=== PATIENT | male | born 1940 | race Caucasian/White ===

== ENCOUNTER 2021-03-04 14:32 | Emergency (ER) | payer MEDICARE ==
[~2021-03-04] VITALS: Ht 177 cm; Wt 95.5 kg
[2021-03-04] MEDS: PROPOFOL DRIP (ICU) 100 ML IV SCH ×4 (14:32→21:59)
[2021-03-04] MEDS ORDERED: ROCURONIUM 10 MG/ML 5 ML SYRINGE IV ONE (14:36)
[2021-03-04] MEDS ORDERED: EPINEPHrine 0.1 MG/ML 10 ML (HOSPIRA) SYR INJ ONE (14:36)
[2021-03-04 15:02] VITALS: BP 164/52
[2021-03-04 15:03] LABS: BASOPHILS % (AUTO) 0 % (0-10); EOSINOPHILS # (AUTO) 0.2 10^3/uL (0.0-0.3); EOSINOPHILS % (AUTO) 1 % (0-10); HEMATOCRIT 29 % (40-54); HEMOGLOBIN 9.8 g/dL (13.3-17.7); LYMPHOCYTES % (AUTO) 38 % (12-44); MEAN CORPUSCULAR HEMOGLOBIN 33 pg (25-34); MEAN CORPUSCULAR HGB CONC 33 g/dL (32-36); MEAN CORPUSCULAR VOLUME 98 fL (80-99); MEAN PLATELET VOLUME 10.8 fL (9.0-12.2); MONOCYTES # (AUTO) 0.6 X 10^3 (0.0-1.0); MONOCYTES % (AUTO) 4 % (0-12); NEUTROPHILS # (AUTO) 8.2 X 10^3 (1.8-7.8); NEUTROPHILS % (AUTO) 52 % (42-75); PLATELET COUNT 295 10^3/uL (130-400); WHITE BLOOD COUNT 15.8 10^3/uL (4.3-11.0)
[2021-03-04 15:04] LABS: POTASSIUM 3.4 MMOL/L (3.6-5.0)
[2021-03-04 15:06] LABS: CALCIUM 7.6 MG/DL (8.5-10.1); INR 1.1 (0.8-1.4); PROTHROMBIN TIME PATIENT 14.7 SEC (12.2-14.7)
[2021-03-04 15:07] LABS: TOTAL PROTEIN 5.3 GM/DL (6.4-8.2)
[2021-03-04] MEDS ORDERED: NOREPINEPHRINE 8 MG/250 ML 250 ML IV ONE (15:08)
[2021-03-04 15:09] LABS: BILIRUBIN,TOTAL 0.4 MG/DL (0.1-1.0)
[2021-03-04] MEDS ORDERED: NS IV 500 ML 500 ML ONE (15:09)
[2021-03-04 15:10] LABS: CREATININE SERUM 2.55 MG/DL (0.60-1.30)
[2021-03-04 15:13] LABS: MAGNESIUM 2.1 MG/DL (1.6-2.4)
[2021-03-04] MEDS: NOREPINEPHRINE 8 MG/250 ML 250 ML IV SCH ×2 (15:15→22:00)
[2021-03-04 15:22] LABS: ATYPICAL LYMPHOCYTES 1 %; BAND NEUTROPHILS 4 %; BASOPHILS % (MANUAL) 0 %; EOSINOPHILS % (MANUAL) 0 %; LYMPHOCYTES % (MANUAL) 31 %; METAMYELOCYTES % 4 %; MONOCYTES % (MANUAL) 5 %; MYELOCYTES % 1 %; NEUTROPHILS % (MANUAL) 54 %
[2021-03-04 15:23] LABS: ROULEAUX SLIGHT
--- NOTE | 2021-03-04 15:38 | ED General ---
General Stated Complaint: CODE BLUE Source of Information: EMS (LUL NAVA APRN) History of Present Illness Date Seen by Provider: Mar 04, 2021 (LUL NAVA APRN) Time Seen by Provider: 14:35 Initial Comments This 81-year-old gentleman presents to the emergency room status post cardiac arrest and ROSC at dialysis just prior to arrival. The arrest occurred suddenly without prodrome according to report. CPR was started at 1413. EMS arrived shortly after and ROSC was achieved at 1424. Initial rhythm was asystole and patient was unresponsive. He had just finished dialysis. Family reports that he had been admitted to [facility] for heart failure and renal failure. He underwent dialysis x3 while at [facility]. He was released late last night and had his first outpatient dialysis today in [place]. He has history of diabetes, heart failure, and renal failure. Blood sugar was in the 300s for EMS. (PAYTON BECKMAN MD) Allergies and Home Medications Allergies Coded Allergies: No Known Drug Allergies (Unverified , 03/04/21) Patient Home Medication List Home Medication List Reviewed: Yes (PAYTON BECKMAN MD) Review of Systems Review of Systems Constitutional: see HPI EENTM: no symptoms reported Respiratory: see HPI Cardiovascular: see HPI Gastrointestinal: no symptoms reported Genitourinary: no symptoms reported Musculoskeletal: no symptoms reported Skin: no symptoms reported Psychiatric/Neurological: See HPI Hematologic/Lymphatic: No Symptoms Reported Immunological/Allergic: no symptoms reported (PAYTON BECKMAN MD) Past [place]-Bisyws-Rqphmc Hx Past Medical History Surgeries: Yes (Dialysis port and dialysis fistula) Coronary Stent Respiratory: Yes Sleep Apnea Cardiac: Yes (CHF) Coronary Artery Disease, Hypertension Neurological: No Genitourinary: Yes Renal Failure, Dialysis Gastrointestinal: No Musculoskeletal: No Endocrine: Yes Diabetes, Insulin dep, Hypothyroidsim Psychosocial: No Integumentary: No (PAYTON BECKMAN MD) Physical Exam Vital Signs Vital Signs - First Documented 03/04/21 03/04/21 14:32 14:49 Temp 35.2 Pulse 69 Resp 17 B/P (MAP) 145/57 Pulse Ox 100 O2 Delivery Ambu Bag O2 Flow Rate 15.00 FiO2 100 (PAYTON BECKMAN MD) Vital Signs Capillary Refill : (LUL NAVA APRN) Height, Weight, BMI Height: '" Weight: lbs. oz. kg; BMI Method: (LUL NAVA APRN) General Appearance: No Apparent Distress, Other (Unresponsive with very little) HEENT: Normal ENT Inspection Neck: Normal Inspection Respiratory: Lungs Clear, Normal Breath Sounds, Other (Intubated) Cardiovascular: Regular Rate, Rhythm, No Edema, No Murmur Gastrointestinal: Soft; No Distended Extremity: Normal Inspection, No Pedal Edema Neurologic/Psychiatric: Other (Some spontaneous muscle movements. Purposeful movement reaching for ET tube after inbutation) Skin: Normal Color, Warm/Dry (PAYOTN BECKMAN MD) Focused Exam Lactate Level 03/04/21 15:20: Lactic Acid Level 2.82*H (PAYTON BECKMAN MD) Lactic Acid Level Laboratory Tests Test 03/04/21 15:20 Lactic Acid Level 2.82 MMOL/L (0.50-2.00) *H (PAYTON BECKMAN MD) Procedures/Interventions Lumen: triple Central Line Procedure: betadine prep Position: internal jugular (L) Volume Anesthetic (ccs): 5 Post Position: sutured, good blood return, position confirmed w/ CXR (LUL NAVA APRN) Date of ETT Placement: Mar 04, 2021 Time of ETT Placement: 1445 Intubation Method: orotracheal Tube Size: 7.50 Medications: Propofol, Rocuronium Positive End Tide CO2: Yes Breath Sounds after Intubation: bilateral-equal Intubation Complications: no complications Post Intubation Xray: Yes (LUL NAVA APRN) Progress/Results/Core Measures Suspected Sepsis SIRS Temperature: Pulse: 50 Respiratory Rate: 18 Laboratory Tests 03/04/21 14:35: White Blood Count 15.8H Blood Pressure 164 /52 Mean: 03/04/21 15:20: Laboratory Tests 03/04/21 14:35: Creatinine 2.55H, INR Comment 1.1, Platelet Count 295, Total Bilirubin 0.4 (LUL NAVA APRN) Results/Orders Lab Results Laboratory Tests Test 03/04/21 14:35 03/04/21 14:50 03/04/21 15:00 03/04/21 15:20 Range/Units White Blood Count 15.8 H 4.3-11.0 10^3/uL Red Blood Count 3.00 L 4.30-5.52 10^6/uL Hemoglobin 9.8 L 13.3-17.7 g/dL Hematocrit 29 L 40-54 % Mean Corpuscular Volume 98 80-99 fL Mean Corpuscular Hemoglobin 33 25-34 pg Mean Corpuscular Hemoglobin Concent 33 32-36 g/dL Red Cell Distribution Width 13.3 10.0-14.5 % Platelet Count 295 130-400 10^3/uL Mean Platelet Volume 10.8 9.0-12.2 fL Immature Granulocyte % (Auto) 6 % Neutrophils (%) (Auto) 52 42-75 % Lymphocytes (%) (Auto) 38 12-44 % Monocytes (%) (Auto) 4 0-12 % Eosinophils (%) (Auto) 1 0-10 % Basophils (%) (Auto) 0 0-10 % Neutrophils # (Auto) 8.2 H 1.8-7.8 X 10^3 Lymphocytes # (Auto) 6.0 H 1.0-4.0 X 10^3 Monocytes # (Auto) 0.6 0.0-1.0 X 10^3 Eosinophils # (Auto) 0.2 0.0-0.3 10^3/uL Basophils # (Auto) 0.0 0.0-0.1 10^3/uL Immature Granulocyte # (Auto) 0.9 H 0.0-0.1 10^3/uL Neutrophils % (Manual) 54 % Lymphocytes % (Manual) 31 % Monocytes % (Manual) 5 % Eosinophils % (Manual) 0 % Basophils % (Manual) 0 % Metamyelocytes % 4 % Myelocytes % 1 % Band Neutrophils 4 % Atypical Lymphocytes 1 % Rouleau SLIGHT Prothrombin Time 14.7 12.2-14.7 SEC INR Comment 1.1 0.8-1.4 Activated Partial Thromboplast Time 51 H 24-35 SEC Sodium Level 134 L 135-145 MMOL/L Potassium Level 3.4 L 3.6-5.0 MMOL/L Chloride Level 103 98-107 MMOL/L Carbon Dioxide Level 17 L 21-32 MMOL/L Anion Gap 14 5-14 MMOL/L Blood Urea Nitrogen 24 H 7-18 MG/DL Creatinine 2.55 H 0.60-1.30 MG/DL Estimat Glomerular Filtration Rate 24 BUN/Creatinine Ratio 9 Glucose Level 351 H 70-105 MG/DL Calcium Level 7.6 L 8.5-10.1 MG/DL Corrected Calcium 8.4 L 8.5-10.1 MG/DL Magnesium Level 2.1 1.6-2.4 MG/DL Total Bilirubin 0.4 0.1-1.0 MG/DL Aspartate Amino Transf (AST/SGOT) 102 H 5-34 U/L Alanine Aminotransferase (ALT/SGPT) 73 H 0-55 U/L Alkaline Phosphatase 52 40-136 U/L Myoglobin 362.7 H 10.0-92.0 NG/ML Troponin I 0.041 H <0.028 NG/ML C-Reactive Protein High Sensitivity 1.07 H 0.00-0.50 MG/DL B-Type Natriuretic Peptide 314.6 H <100.0 PG/ML Total Protein 5.3 L 6.4-8.2 GM/DL Albumin 3.0 L 3.2-4.5 GM/DL Procalcitonin 0.07 <0.10 NG/ML Urine Color YELLOW Urine Clarity CLOUDY Urine pH 6.0 5-9 Urine Specific Scre[place] >=1.030 1.016-1.022 Urine Protein 2+ H NEGATIVE Urine Glucose (UA) 2+ H NEGATIVE Urine Ketones NEGATIVE NEGATIVE Urine Nitrite NEGATIVE NEGATIVE Urine Bilirubin NEGATIVE NEGATIVE Urine Urobilinogen 0.2 < = 1.0 MG/DL Urine Leukocyte Esterase NEGATIVE NEGATIVE Urine RBC (Auto) NEGATIVE NEGATIVE Urine RBC NONE /HPF Urine WBC 0-2 /HPF Urine Squamous Epithelial Cells RARE /HPF Urine Crystals NONE /LPF Urine Bacteria LARGE H /HPF Urine Casts PRESENT /LPF Urine Hyaline Casts 0-2 H /LPF Urine Mucus NEGATIVE /LPF Urine Culture Indicated YES Influenza Type A (RT-PCR) Not Detected Not Detecte Influenza Type B (RT-PCR) Not Detected Not Detecte SARS-CoV-2 RNA (RT-PCR) Not Detected Not Detecte Lactic Acid Level 2.82 *H 0.50-2.00 MMOL/L Test 03/04/21 16:16 03/04/21 18:20 Range/Units Blood Gas Puncture Site R BRACHIAL Blood Gas Patient Temperature 36 Arterial Blood pH 7.36 L 7.37-7.43 Arterial Blood Partial Pressure CO2 39 35-45 MMHG Arterial Blood Partial Pressure O2 61 L 79-93 MMHG Arterial Blood HCO3 22 L 23-27 MMOL/L Arterial Blood Total CO2 23.0 21.0-31.0 MMOL/L Arterial Blood Oxygen Saturation 92 L 94-100 % Arterial Blood Base Excess -3.0 L -2.5-2.5 MMOL/L Calin Test NA Blood Gas Ventilator Setting YES Blood Gas Inspired Oxygen 35% Glucometer 361 H 70-110 MG/DL (PAYTON BECKMAN MD) My Orders Orders - PAYTON BECKMAN MD Cbc With Automated Diff (03/04/21 14:51) Magnesium (03/04/21 14:51) Chest 1 View, Ap/Pa Only (03/04/21 14:51) Ekg Tracing (03/04/21 14:51) Comprehensive Metabolic Panel (03/04/21 14:51) Myoglobin Serum (03/04/21 14:51) Protime With Inr (03/04/21 14:51) Partial Thromboplastin Time (03/04/21 14:51) O2 (03/04/21 14:51) Monitor-Rhythm Ecg Trace Only (03/04/21 14:51) Lipid Panel (03/05/21 06:00) Ed Iv/Invasive Line Start (03/04/21 14:51) Troponin I (03/04/21 14:51) Lactic Acid Analyzer (03/04/21 15:03) Manual Differential (03/04/21 14:35) Norepinephrine 8 Mg/250 Ml (Norepinephri (03/04/21 15:08) Ns Iv 500 Ml (Sodium Chloride 0.9%) (03/04/21 15:09) Norepinephrine 8 Mg/250 Ml (Norepinephri (03/04/21 15:30) Covid 19 Inhouse Test (03/04/21 15:25) Influenza A And B By Pcr (03/04/21 15:25) Ekg Tracing (03/04/21 15:38) Hs C Reactive Protein (03/04/21 16:15) Procalcitonin (Pct) (03/04/21 16:15) Urine Culture (03/04/21 14:50) Sputum Culture (03/04/21 14:48) Blood Culture (03/04/21 16:34) Urinalysis (03/04/21 16:34) Vital Signs Adult Sepsis Patie Q15M (03/04/21 16:34) Remove Rings In Anticipation O (03/04/21 16:34) Urine Culture (03/04/21 14:50) BNP (03/04/21 17:09) Propofol Drip (Icu) (Diprivan Drip (Icu) (03/04/21 18:05) (PAYTON BECKMAN MD) Medications Given in ED Current Medications Medications Dose Ordered Sig/Geoffrey Route Start Time Stop Time Status Last Admin Dose Admin Propofol 100 ml @ ud STK-MED ONCE IV 03/04/21 18:05 03/04/21 18:08 DC 03/04/21 18:20 23 MLS/HR Sodium Chloride 500 ml @ ud STK-MED ONCE .ROUTE 03/04/21 15:09 03/04/21 15:11 DC 03/04/21 15:15 500 MLS/HR (PAYTON BECKMAN MD) Vital Signs/I&O 03/04/21 03/04/21 03/04/21 03/04/21 14:32 14:32 14:49 15:02 Temp 35.2 Pulse 69 70 50 Resp 17 18 B/P (MAP) 145/57 145/57 (86) Pulse Ox 100 96 O2 Delivery Ambu Bag Ambu Bag O2 Flow Rate 15.00 FiO2 100 35 03/04/21 03/04/21 03/04/21 15:15 18:20 19:28 Pulse 45 55 54 Resp 18 B/P (MAP) 52/32 134/61 Pulse Ox 96 FiO2 50 (PAYTON BECKMAN MD) Vital Signs/I&O Capillary Refill : (LUL NAVA APRN) Progress Note : Time: 20:50 Progress Note I have assumed care of the patient from Dr. Cullen pending transfer if we can find a bed. We have called multiple local hospitals and have added mission control to assist in finding a bed. Thus far we have not had any luck. Patient does need facility capable of doing dialysis as he is end-stage renal disease. I have consulted [facility] ICU for assistance in managing the patient. I did discuss the case with them and they have added orders and are assisting with the overall management. Monitor patient. 2350: CT scan complete. Patient has had orders for insulin drip and antibiotics. Repeat labs ordered and done by ICU team. Remains on Levophed drip at 0.1 mcg/kg/min and propofol drip for sedation. Patient control called and [facility] in [place] is requesting information for evaluation. We will send them information as requested. Monitor patient. 0107: [facility] was called and they believe there may be an ICU bed at the [facility] in [place]. They asked that I call which I did. The entire [place] system is on transfer diversion and is not excepting any transfers and currently. We are still pending information from [place]. Family informed. Monitor patient. 0600: Still pending transfer. Unable to find facility overnight and mission control will restart attempts for finding bed this morning. The telehealth ICU team has continued coverage overnight with this patient including initiating insulin drip and antibiotics. They are monitoring closely. Care transferred to Dr. Allen pending transfer. I did have a long conversation with the family regarding patient's current situation including concerns for possibility of worsening. We will continue appropriate care here but still are unable to provide dialysis. Patient and family are understanding and appreciative of all of the efforts that we are providing. Checkout to Dr. Allen at bedside. (MOODY TATUM MD) Progress Note : Time: 11:36 Progress Note Assumed care of the patient at shift change. Review protocols. We did reduce his propofol as his pressure was soft and had to increase his pressures. eICU has been very helpful in the care of this case and we are grateful. His blood sugar was 120s and his insulin drip continues. (KAMINI ALLEN) ECG EKG #1: EKG Time: 14:53 Rate: 54 Rhythm: Normal Sinus Comment Sinus rhythm with no ST elevation. Borderline ST depression but not diagnostic for ischemia. prolonged QTC of 506. No axis deviation. EKG #2: EKG Time: 15:00 Rate: 54 Comment Sinus rhythm with no ST elevation. Borderline ST depression. QTc improved. No axis deviation. (PAYTON BECKMAN MD) Diagnostic Imaging Diagonstic Imaging: Xray Plain Films/CT/US/NM/MRI: chest Comments NAME: ANTHONY HILL [facility] REC#: [id number] PT STATUS: REG ER : 1940 PHYSICIAN: PAYTON BECKMAN MD ADMIT DATE: 03/04/21/ER Draft Date of Exam:03/04/21 CHEST 1 VIEW, AP/PA ONLY INDICATION: Chest pain. TECHNIQUE: Single view chest 3:51 PM. CORRELATION STUDY: None FINDINGS: Endotracheal tube projects over the trachea tip below the clavicles. Left IJ central line is present, tip likely at the level of the innominate vein, approaching the SVC. Right IJ dialysis catheter tip at the high right atrium. Gastric tube tip likely just distal to the GE junction side-port proximal to the junction. Heart size is enlarged, mediastinum prominent. Vascular congestion present. Bilateral pulmonary opacities may be reflective of underlying edema. Developing multilobe infiltrate not excluded. IMPRESSION: 1. Multiple support lines and tubes, as above. 2. Cardiac enlargement and vascular congestion suggestive of edema. Bilateral pulmonary opacities. Additional pulmonary edema versus multilobe infiltrate. Follow-up imaging recommended. Dictated on workstation # [id number] Dict: 03/04/21 1600 Trans: 03/04/21 1603 [facility] [id number] Interpreted by: ROSHNI CHASE DO (PAYTON BECKMAN MD) Diagonstic Imaging: CT Plain Films/CT/US/NM/MRI: head Comments [facility] [place] NAME: ANTHONY HILL [facility] REC#: [id number] PT STATUS: REG ER : 1940 PHYSICIAN: NOAH YU MD ADMIT DATE: 03/04/21/ER Signed Date of Exam:03/04/21 CT HEAD WO PROCEDURE: CT head without contrast. TECHNIQUE: Multiple contiguous axial images were obtained through the brain without the use of intravenous contrast. Auto Exposure Controls were utilized during the CT exam to meet ALARA standards for radiation dose reduction. INDICATION: Cardiopulmonary arrest Patient has a left ocular prosthesis. The ventricles are normal in size, shape, and position. There are no masses or hemorrhages. There are no extra-axial fluid collections. IMPRESSION: No acute abnormality seen in the head Dictated by: Dictated on workstation # [id number] Dict: 03/04/212313 Trans: 03/04/212316 [facility] [id number] Interpreted by: MOODY MCCLOUD MD Electronically signed by: MOODY MCCLOUD MD 03/04/212316 (MOODY TATUM MD) Critical Care Note Critical Care Progress 1600 - Patient had pulse and measurable blood pressure on arrival. He had received epinephrine 1 mg, atropine milligram, and normal saline 400 mL at the time of arrival. CPR was performed on scene until ROSC was achieved after the administration of epinephrine. He was bradycardic after ROSC and atropine was administered. Vital signs are stable on arrival. He is nearly unresponsive but has some purposeful movement reaching toward the ET tube after intubation. Induction was achieved with a propofol 80 mg bolus and rocuronium 50 mg. Sedation is being maintained with a propofol drip. Blood pressure has dropped and was hypotensive after intubation. Levophed drip was initiated and has been titrated up to achieve systolic blood pressure greater than 90. He also received an additional bolus of 500 mL normal saline totaling 900 mL in fluid boluses. We have attempted to transfer the patient to facilities with intensive care and nephrology services. Unfortunately [facility] [place], [facility] [place], [facility] [place], and [facility] all have declined transfer due to no availability of ICU beds. We are now applying the services of the [facility] to find placement. Intubation was performed by Yahir Bettencourt, MS 4 under supervision of Lul Nava NP. Central line was placed by Lul Nava NP while Dr. Justin coordinating care. 2020 - Via [facility] referrals I have spoken with the [facility] and [facility] in [place]. Neither could accept this patient due to ICU bed availability. [facility] continues to work on placement. Patient remains stable on norepinephrine drip at this time. We have updated the family on the situation. Procalcitonin and CRP are low indicating this is not likely related to an infectious etiology. We have elected to not pursue therapeutic cooling on this patient due to his purposeful movement and occasional spontaneous move ments. Care of this patient is being transitioned to Dr. Tatum at this time. (PAYTON BECKMAN MD) Departure Impression Primary Impression: Cardiac arrest Additional Impressions: End stage renal disease Respiratory arrest Disposition: SHT-TRM HOSP Condition: Critical Transfer Transfer Reason: Exceeds level of care (No inpatient dialysis locally) Time Spoke to Accepting Phy: 11:30 Transfer Progress Notes Discussed the case with inpatient physician at [facility], in [place], [place] and he agrees with initiating heparin drip and antibiotics, pressors, propofol and accepts the patient to their unit. We are pending a bed and working on air transportation. Transfer Time: 13:00 Transfer Facility: [place], [place] Method of Transfer: Air (KAMINI ALLEN) Departure-Patient Inst. Referrals: GARRET REYNOSO DO (PCP/Family) Primary Care Physician LUL NAVA APRN Mar 04, 2021 15:38 PAYTON BECKMAN MD Mar 04, 2021 16:06 MOODY TATUM MD Mar 04, 2021 20:59 KAMINI ALLEN Mar 05, 2021 11:39
--- NOTE | 2021-03-04 16:04 | Diagnostic Imaging Report ---
INDICATION: Chest pain. TECHNIQUE: Single view chest 3:51 PM. CORRELATION STUDY: None FINDINGS: Endotracheal tube projects over the trachea tip below the clavicles. Left IJ central line is present, tip likely at the level of the innominate vein, approaching the SVC. Right IJ dialysis catheter tip at the high right atrium. Gastric tube tip likely just distal to the GE junction side-port proximal to the junction. Heart size is enlarged, mediastinum prominent. Vascular congestion present. Bilateral pulmonary opacities may be reflective of underlying edema. Developing multilobe infiltrate not excluded. IMPRESSION: 1. Multiple support lines and tubes, as above. 2. Cardiac enlargement and vascular congestion suggestive of edema. Bilateral pulmonary opacities. Additional pulmonary edema versus multilobe infiltrate. Follow-up imaging recommended. Dictated by: Dictated on workstation # [id number]
[2021-03-04 16:25] LABS: ABG OXYGEN SATURATION 92 % (94-100); ABG PCO2 39 MMHG (35-45); ABG PH 7.36 (7.37-7.43); ABG PO2 61 MMHG (79-93)
[2021-03-04 16:28] LABS: INSPIRED O2 35%; PATIENT TEMP 36; VENTILATOR YES
[2021-03-04 16:47] LABS: BILIRUBIN,URINE NEGATIVE (NEGATIVE); CLARITY,URINE CLOUDY; COLOR,URINE YELLOW; GLUCOSE, URINE (UA) 2+ (NEGATIVE); KETONES,URINE NEGATIVE (NEGATIVE); LEUKOCYTE ESTERASE ,URINE NEGATIVE (NEGATIVE); NITRITE,URINE NEGATIVE (NEGATIVE); PROTEIN,URINE 2+ (NEGATIVE)
[2021-03-04 16:54] LABS: BACTERIA,URINE LARGE /HPF; WBC,URINE 0-2 /HPF
[2021-03-04 16:55] LABS: HYALINE CASTS, URINE 0-2 /LPF; SQUAMOUS EPITHELIAL CELL,UR RARE /HPF
[2021-03-04] MEDS ORDERED: PROPOFOL DRIP (ICU) 100 ML IV ONE (18:05)
[2021-03-04] MEDS ORDERED: VANCOMYCIN INJECTION 1,000 MG in NS (IVPB) 250 ML IV SCH (21:00)
[2021-03-04] MEDS ORDERED: CEFEPIME INJECTION 1,000 MG in WATER (STERILE) FOR INJECTION 10 ML IV ONE (21:00)
--- NOTE | 2021-03-04 21:05 | Tele-ICU Consult ---
History of Present Illness History of Present Illness Date Seen by Provider: Mar 04, 2021 Time Seen by Provider: 20:55 Date of Admission This 81-year-old gentleman presents to the emergency room status post cardiac arrest and ROSC at dialysis just prior to arrival. The arrest occurred suddenly without prodrome according to report- as per he was less responsive, hypotensive and went in cardiac arrest . CPR was started at 1413. EMS arrived shortly after and ROSC was achieved at 1424. Initial rhythm was asystole and patient was unresponsive. He had just finished dialysis. Family reports that he had been admitted to [facility] for heart failure and renal failure. He underwent dialysis x3 while at [facility]. He was released late last night and had his first outpatient dialysis today in [place]. He has history of diabetes, heart failure, and renal failure. Blood sugar was in the 300s for EMS. Pt had spontaneous movement post ROSC. dw ED Physician in details about the case Allergies and Home Medications Allergies Coded Allergies: No Known Drug Allergies (Unverified , 03/04/21) Past Medical/Social/Family Hx Patient Social History Employed/Student: retired Smokeless type used: Chew Smokeless Tobacco Frequency: Former User Substance use?: No Alcohol Use?: No Pt stated abuse/neglect: Unable to obtain Immunizations Up To Date First/Initial COVID19 Vaccinat: UNK Second COVID19 Vaccination [place]: UNK Current Status Advance Directives: Unable to obtain Primary Language: Indian Preferred Spoken Language: Indian Past Medical History HTN, DM, ESRD as of 02/27 Review of Systems Constitutional: see HPI Sepsis Event Evaluation Height, Weight, BMI Height: '" Weight: lbs. oz. kg; 30.00 BMI Method: Exam Exam Patient acknowledged, consented, and participated in this virtual visit which was conducted using real time audio/video Vital Signs Date Time Temp Pulse Resp B/P (MAP) Pulse Ox O2 Delivery O2 Flow Rate FiO2 03/04/21 19:28 54 18 96 50 03/04/21 18:20 55 134/61 03/04/21 15:15 45 52/32 03/04/21 15:02 50 18 96 35 03/04/21 14:49 35.2 70 17 145/57 (86) Ambu Bag 03/04/21 14:32 100 Ambu Bag 15.00 100 03/04/21 14:32 69 145/57 Height & Weight Height: '" Weight: lbs. oz. kg; 30.00 BMI Method: General Appearance: No Apparent Distress, Other (intubated) Respiratory: Lungs Clear, Normal Breath Sounds, Decreased Breath Sounds, Other (Intubated) Capillary Refill: Less Than 3 Seconds Results Lab Laboratory Tests 03/04/21 14:35 Assessment/Plan Assessment/Plan A/P 1. Acute resp failure in the context of cardiac arrest -full vent support AC 18/500/5/45%; abg ordered may need to adjust vent setting 2. Cardiac arrest -unlcear cause: =sepsis: we start empiric abx cefepime+ vanco/ trend lactic acid/ blood cultures -pt is hypotensive on levophed =trend trops/echo =ro cva ct head ordered =pe is part of the ddx: due to high creat we will refrain from contrast duplex of lower ext 3. ESRD will need regular HD 4. FAST HUG -propofol -dvt gi prophylaxis dw and bed side rn 5. Neuro - ct head ro cva -not following commands -keep temp 36 NOAH YU MD Mar 04, 2021 21:05
[2021-03-04 21:39] LABS: ABG BASE EXCESS -4.4 MMOL/L (-2.5-2.5); ABG OXYGEN SATURATION 94 % (94-100); ABG PCO2 36 MMHG (35-45); ABG PH 7.36 (7.37-7.43); ABG PO2 68 MMHG (79-93); ABG TCO2 21.4 MMOL/L (21.0-31.0)
[2021-03-04] MEDS ORDERED: PANTOPRAZOLE 40 MG (PROTONIX) VIAL ONE (21:39)
[2021-03-04 21:40] LABS: ALLENS TEST YES-POS; INSPIRED O2 45%; PATIENT TEMP 36.1; VENTILATOR YES
[2021-03-04 22:13] LABS: ALBUMIN 3.1 GM/DL (3.2-4.5); POTASSIUM 5.4 MMOL/L (3.6-5.0)
[2021-03-04 22:14] LABS: CALCIUM 8.7 MG/DL (8.5-10.1)
[2021-03-04 22:17] LABS: BILIRUBIN,TOTAL 0.4 MG/DL (0.1-1.0)
[2021-03-04 22:20] LABS: CREATININE SERUM 3.19 MG/DL (0.60-1.30)
[2021-03-04] MEDS ORDERED: inSUlin (REGULAR) HUMAN 1 UNIT/0.01 ML (CHARGE PER UNIT) SC STA (22:32)
--- NOTE | 2021-03-04 23:18 | Diagnostic Imaging Report ---
PROCEDURE: CT head without contrast. TECHNIQUE: Multiple contiguous axial images were obtained through the brain without the use of intravenous contrast. Auto Exposure Controls were utilized during the CT exam to meet ALARA standards for radiation dose reduction. INDICATION: Cardiopulmonary arrest Patient has a left ocular prosthesis. The ventricles are normal in size, shape, and position. There are no masses or hemorrhages. There are no extra-axial fluid collections. IMPRESSION: No acute abnormality seen in the head Dictated by: Dictated on workstation # [id number]
[2021-03-04 23:28] VITALS: BP 109/48
[2021-03-04] MEDS ORDERED: NS (IVPB) 250 ML ONE (23:28)
[2021-03-04] MEDS ORDERED: VANCOMYCIN 1000 MG/VIAL ONE (23:28)
[2021-03-05] MEDS: PROPOFOL DRIP (ICU) 100 ML IV SCH ×3 (01:29→09:27)
[2021-03-05 01:45] VITALS: BP 114/52
[2021-03-05] MEDS: NOREPINEPHRINE 8 MG/250 ML 250 ML IV SCH ×2 (03:39→09:27)
[2021-03-05 04:15] LABS: ABG BASE EXCESS -5.6 MMOL/L (-2.5-2.5); ABG OXYGEN SATURATION 97 % (94-100); ABG PCO2 33 MMHG (35-45); ABG PH 7.38 (7.37-7.43); ABG PO2 82 MMHG (79-93); ABG TCO2 19.7 MMOL/L (21.0-31.0); ALLENS TEST POSITIVE; INSPIRED O2 50%; PATIENT TEMP 36.8; VENTILATOR YES
[2021-03-05 04:45] LABS: POTASSIUM 4.3 MMOL/L (3.6-5.0)
[2021-03-05 04:46] LABS: CALCIUM 8.7 MG/DL (8.5-10.1)
[2021-03-05 04:47] LABS: TOTAL PROTEIN 5.9 GM/DL (6.4-8.2)
[2021-03-05 04:49] LABS: BILIRUBIN,TOTAL 0.3 MG/DL (0.1-1.0)
[2021-03-05 04:50] LABS: BASOPHILS # (AUTO) 0.1 10^3/uL (0.0-0.1); BASOPHILS % (AUTO) 0 % (0-10); EOSINOPHILS # (AUTO) 0.1 10^3/uL (0.0-0.3); EOSINOPHILS % (AUTO) 0 % (0-10); HEMATOCRIT 34 % (40-54); HEMOGLOBIN 11.3 g/dL (13.3-17.7); LYMPHOCYTES # (AUTO) 2.7 10^3/uL (1.0-4.0); LYMPHOCYTES % (AUTO) 9 % (12-44); MEAN CORPUSCULAR HEMOGLOBIN 33 pg (25-34); MEAN CORPUSCULAR HGB CONC 33 g/dL (32-36); MEAN CORPUSCULAR VOLUME 97 fL (80-99); MEAN PLATELET VOLUME 11.2 fL (9.0-12.2); MONOCYTES # (AUTO) 1.4 10^3/uL (0.0-1.0); MONOCYTES % (AUTO) 5 % (0-12); NEUTROPHILS # (AUTO) 24.9 10^3/uL (1.8-7.8); NEUTROPHILS % (AUTO) 83 % (42-75); PLATELET COUNT 387 10^3/uL (130-400)
[2021-03-05 04:51] LABS: CREATININE SERUM 3.57 MG/DL (0.60-1.30)
[2021-03-05 04:59] LABS: WHITE BLOOD COUNT 30.1 10^3/uL (4.3-11.0)
[2021-03-05] MEDS ORDERED: MEROPENEM 1,000 MG in WATER (STERILE) FOR INJECTION 20 ML IV SCH (05:15)
[2021-03-05 06:14] LABS: ANISOCYTOSIS SLIGHT; BAND NEUTROPHILS 4 %; HYPOCHROMASIA SLIGHT; LYMPHOCYTES % (MANUAL) 8 %; MONOCYTES % (MANUAL) 6 %; NEUTROPHILS % (MANUAL) 80 %; POIKILOCYTOSIS SLIGHT
[2021-03-05 06:15] LABS: MICROCYTOSIS SLIGHT
[2021-03-05] MEDS ORDERED: MEROPENEM 1000 MG (MERREM) VIAL IV ONE (06:27)
[2021-03-05] MEDS ORDERED: WATER (STERILE) FOR INJECTION 20 ML ONE (06:27)
[2021-03-05] MEDS ORDERED: MEROPENEM 500 MG in WATER (STERILE) FOR INJECTION 10 ML IV SCH (06:30)
[2021-03-05 06:58] VITALS: BP 105/53
[2021-03-05 08:47] LABS: CALCIUM 8.6 MG/DL (8.5-10.1)
[2021-03-05 08:51] LABS: CREATININE SERUM 3.62 MG/DL (0.60-1.30)
[2021-03-05] MEDS ORDERED: PANTOPRAZOLE 40 MG (PROTONIX) VIAL IV SCH (09:00)
[2021-03-05] MEDS ORDERED: NS IV 1000 ML 1,000 ML ONE (09:21)
--- NOTE | 2021-03-05 09:28 | Diagnostic Imaging Report ---
PROCEDURE: US Venous Lower Ext Mendoza. TECHNIQUE: Multiple real-time grayscale images were obtained over the lower extremities in various projections, bilaterally. Additional duplex Doppler and color Doppler images were also obtained. INDICATION: Cardiopulmonary arrest. FINDINGS: There is some nonocclusive thrombus in the right common femoral vein near the puncture site. Remainder of the lower extremity venous system is patent bilaterally. There are no abnormal fluid collections or masses. IMPRESSION: Findings are suspect for nonocclusive thrombus in the right common femoral vein near the puncture site. Dictated by: Dictated on workstation # [id number]
[2021-03-05 10:34] VITALS: BP 124/57
[2021-03-05] MEDS ORDERED: HEParin DRIP 25000 UNIT/500ML 500 ML IV SCH (11:30)
[2021-03-05] MEDS ORDERED: HEParin 1000 UNIT/ML (10ML VIAL) FOR BOLUS IV SCH (11:30)
--- NOTE | 2021-03-05 12:38 | Anesthesia-Procedure Note ---
Procedures/Interventions Procedure Start/Stop/Diagnosis Date of Procedure: Mar 05, 2021 Start Time: 10:15 Stop Time: 10:24 Arterial Line Arterial Line Catheter: 20G Type: Radial Location: Left Procedure: prepped, draped in sterile fashion, 1% lidocaine used to numb region, patient tolerated procedure well, no immediate complications, post procedure area cleaned, post procedure dressing applied TERRANCE RUANO CRNA Mar 05, 2021 12:38
[2021-03-05] MEDS ORDERED: NS (IVPB) 100 ML ONE (12:43)
[2021-03-05 12:58] VITALS: BP 123/54
== END 2021-03-05 12:55 | disposition short-term general hospital (02) ==
LOC: ER 14:35
DX: I46.9 Cardiac arrest, cause unspecified (principal); E11.22 Type 2 diabetes mellitus with diabetic chronic kidney disease; I13.2 Hypertensive heart and chronic kidney disease with heart failure and with stage 5 chronic kidney disease, or end stage renal disease; I50.9 Heart failure, unspecified; N18.6 End stage renal disease; G47.30 Sleep apnea, unspecified; Z20.822 Contact with and (suspected) exposure to COVID-19
CPT/HCPCS: 31500; 36415; 36556; 36680; 51702; 70450; 71045; 80048; 80053; 81000; 82805; 82947; 83605; 83735; 83874; 83880; 84145; 84484; 85007; 85027; 85610; 85730; 86141; 87040; 87070; 87088; 87205; 87636; 93005; 93041; 93306; 93970; 94002; 94003; 94799; 96365; 96372; 96375; 99291